=== PATIENT | female | born 1945 ===

== ENCOUNTER 2020-12-13 09:54 | Day surgery (SDC) | payer MEDICARE ==
[~2020-12-13] VITALS: Ht 167.6 cm; Wt 74.1 kg
[~2020-12-13 09:54] MED LIST: BUPIVACAINE/PF 0.25% ONE
[2020-12-13] MEDS ORDERED: ISOSULFAN BLUE 10 MG/ML, 5ML IV ONE (10:33)
[2020-12-13] MEDS ORDERED: MIDAZOLAM 1 MG/ML, 2ML ONE (10:57)
[2020-12-13] MEDS ORDERED: FENTANYL PF 100 MCG/2ML ONE ×2 (10:57→16:18)
[2020-12-13] MEDS ORDERED: LACTATED RINGERS 1,000 ML IV SCH (11:00)
[2020-12-13] MEDS ORDERED: CHLORHEXIDINE 15 ML UDC PO ONE (11:00)
[2020-12-13 11:03] VITALS: BP 162/92
[2020-12-13] MEDS ORDERED: HYDROcodone/APAP 7.5-325MG/15ML UDC PO PRN (11:30)
[2020-12-13] MEDS ORDERED: ONDANSETRON 2MG/ML, 2ML IVPush PRN (11:30)
[2020-12-13] MEDS ORDERED: HYDROmorphone 1 MG/ML, 1ML INJ IVPush PRN (11:30)
[2020-12-13] MEDS ORDERED: ACETAMINOPHEN 325 MG TABLET PO PRN (11:30)
[2020-12-13] MEDS ORDERED: FENTANYL PF 100 MCG/2ML IV PRN (11:30)
[2020-12-13] MEDS ORDERED: PROMETHAZINE 25 MG/ML, 1ML IVPush PRN (11:30)
[2020-12-13] MEDS ORDERED: OXYcodone 5 MG/5 ML ORAL.SOL UDC PO PRN (11:30)
[2020-12-13] MEDS ORDERED: MEPERIDINE/PF 25MG/0.5ML IVPush PRN (11:30)
[2020-12-13] MEDS ORDERED: KETOROLAC 30 MG/1 ML ONE (11:33)
[2020-12-13] MEDS ORDERED: DEXAMETHASONE 4 MG/ML, 1ML ONE (11:33)
[2020-12-13] MEDS ORDERED: DIPHENHYDRAMINE 50 MG/ML, 1ML ONE (12:43)
[2020-12-13] MEDS ORDERED: DIPHENHYDRAMINE 50 MG/ML, 1ML IVPush ONE ×2 (13:00→13:30)
[2020-12-13] MEDS ORDERED: BUPIVACAINE/PF 0.25% ONE (15:45)
[2020-12-13] MEDS ORDERED: BUPIVACAINE/PF 0.25% INFIL ONE (16:28)
[2020-12-13] MEDS ORDERED: CEFAZOLIN 1,000 MG ONE (16:42)
[2020-12-13] MEDS ORDERED: LIDOCAINE-MPF 2% ,5ML ONE (16:42)
[2020-12-13] MEDS ORDERED: ONDANSETRON 2MG/ML, 2ML ONE (16:42)
[2020-12-13] MEDS ORDERED: PROPOFOL 10 MG/ML, 20ML ONE (16:42)
== END 2020-12-13 19:40 | disposition home or self-care (01) ==
LOC: OUT 09:54 → EDSTATUS 12:30 → OUT 19:40
PROVIDERS: ATTEND Surgery
DX: C50.411 Malignant neoplasm of upper-outer quadrant of right female breast (principal); N64.89 Other specified disorders of breast; E78.5 Hyperlipidemia, unspecified; Z17.0 Estrogen receptor positive status [ER+]; Z20.822 Contact with and (suspected) exposure to COVID-19; Z79.899 Other long term (current) drug therapy; Z82.49 Family history of ischemic heart disease and other diseases of the circulatory system; Z82.3 Family history of stroke
CPT/HCPCS: 19301; 21501; 38525; 38792; 76098; 88305; 88307; 93005; A9541; J0690; J1100; J1200; J1885; J2250; J2405; J2704; J3010; J7120; U0003; U0005

== ENCOUNTER 2021-01-20 08:30 | Outpatient (CLI) | payer MEDICARE | END 2021-01-20 23:59 | disposition home or self-care (01) | LOC: ROC 08:30 | PROVIDERS: ATTEND Radiology Radiation Oncology | DX: C50.411 Malignant neoplasm of upper-outer quadrant of right female breast (principal); E78.5 Hyperlipidemia, unspecified; Z17.0 Estrogen receptor positive status [ER+]; Z79.899 Other long term (current) drug therapy | CPT/HCPCS: 99204; G0463 ==

== ENCOUNTER 2021-03-23 09:50 | Outpatient (CLI) | payer MEDICARE | END 2021-03-23 23:59 | disposition home or self-care (01) | LOC: ROC 09:50 | PROVIDERS: ATTEND Radiology Radiation Oncology | DX: C50.411 Malignant neoplasm of upper-outer quadrant of right female breast (principal); E78.5 Hyperlipidemia, unspecified; Z17.0 Estrogen receptor positive status [ER+]; Z79.899 Other long term (current) drug therapy | CPT/HCPCS: 99213; G0463 ==